=== PATIENT | female | born 1945 | race Caucasian/White ===

== ENCOUNTER 2019-08-08 16:27 | Observation (INO) ==
--- NOTE | 2019-08-08 17:19 | PROVIDER DOCUMENTATION ---
HPI-General Adult - General Chief Complaint: Fall Stated Complaint: FALL Time Seen by Provider: 08/08/19 16:29 Source: patient Allergies/Adverse Reactions: Patient Allergies Allergy/AdvReac Type Severity Reaction Status Date / Time Penicillins Allergy Unknown Verified 08/08/19 19:15 Home Medications: Home Medication List Medication Instructions Recorded Confirmed Last Taken Type Atenolol [Tenormin] 25 mg PO BID 08/08/19 08/08/19 08/08/19 History Naproxen Sodium [Aleve] 1 cap PO PRN PRN 08/08/19 08/08/19 Unknown History - History of Present Illness -Gen Adult Nature of Presenting Problems: patient reported she she fell and injured her shoulder, denied head injury of loss of consciousness. obvious hematoma of the left arm with significant deformity. Location of Pain/Injury: reports: upper extremity Pain Radiation: reports: shoulder(s) Quality of Pain: reports: sharp, stabbing, tightness Severity: reports: moderate Onset/Duration: reports: abrupt, this morning Timing: reports: still present Context/Activities at Onset: reports: recent trauma history Modifying Factors: improves with: movement, palpation Associated Symptoms: reports: cough, fever/chills. denies: shortness of breath Similar Symptoms Previously?: No Recently seen or treated by another doctor?: No Review of Systems - Adult - REVIEW OF SYSTEMS - ADULT Constitutional: denies: fever, fatique Eyes: reports: no symptoms reported Ears, Nose, Mouth & Throat: reports: no symptoms reported Cardiovascular: reports: no symptoms reported Respiratory: reports: chronic cough, cough, shortness of breath Gastrointestinal: reports: no symptoms reported Genitourinary: reports: no symptoms reported Musculoskeletal: reports: joint pain, other (shoulder pain) Integumentary: reports: other (big hematoma) Psychiatric: reports: no symptoms reported Endocrine: reports: no symptoms reported Hematologic/Lymphatic: reports: no symptoms reported Allergic/Immunologic: reports: no symptoms reported Past History - Adult - PAST MEDICAL HISTORY-ADULT Review of Records: reports: Nursing Assessment Review Physical Exam-General - PHYSICAL EXAM-ADULT Initial Vital Signs Reviewed: Yes - CONSTITUTIONAL General Appearance: alert, no apparent distress - EYES Eyes: PERRL/EOMI - HEAD, EARS, NOSE, MOUTH & THROAT HENMT: normocephalic/atraumatic - NECK Neck: normal inspection. negative: C-spine tenderness - RESPIRATORY Respiratory: rhonchi, other (distant breath sounds). negative: wheezing - CARDIOVASCULAR Cardiovascular: normal peripheral pulses, regular rate, rhythm, no edema - GASTROINTESTINAL (ABDOMEN) Abdominal Exam: non tender, soft - MUSCULOSKELETAL Back Exam: no CVA tenderness, no vertebral tenderness, swelling, other (shoulder deformity, hematoma, tenderness) Extremity: no pedal edema, no calf tenderness - SKIN Integumentary: swelling, tenderness, other (hematoma) - NEUROLOGIC Neurologic: grossly normal, no motor/sensory deficits - PSYCHIATRIC Psych/Mental Status: normal mood/affect Progress - PLAN OF CARE/RESULTS Progress/Plan/Lab Results: Vital Signs - 8 hr 08/08/19 16:36 08/08/19 17:07 Temperature 99.9 F H 98.0 F Pulse Rate 90 Respiratory Rate 20 Blood Pressure 171/107 O2 Sat by Pulse Oximetry 97 Orders Category Date Time Status CHEST-2 VIEWS [RAD] Stat Exams 08/08/19 17:00 Ordered CLAVICLE-LEFT [RAD] Stat Exams 08/08/19 16:48 Ordered SHOULDER-LEFT [RAD] Stat Exams 08/08/19 16:59 Ordered BLOOD CULTURE [BLDCUL] Stat Lab 08/08/19 17:05 Uncollected CBC WITH DIFF [HEME] Stat Lab 08/08/19 17:05 Ordered COMPREHENSIVE METABOLIC PANEL [CHEM] Stat Lab 08/08/19 17:05 Uncollected SPUTUM CULTURE WITH GRAM STAIN [RM] Urgent Lab 08/08/19 17:06 Uncollected Pulse Oximetry Stat Oth 08/08/19 17:05 Active Result Diagrams: 08/08/19 17:40 08/08/19 17:40 - REASSESSMENT N Time Reassessed: 19:32 Status: unchanged (WILL COVID TEST ON WAY TO ADMIT AT [facility], NOT ATELECTASIS LLL AND TEMP 99.9, POSSIBLE ROUTINE CAP OR COVID: WILL TEST FOR COVID, ADMISSION DISCUSSED W/ DR UMANZOR-Keyla) - CONSULTS/PCP/HOSPITALIST Notification #1 *Consult/PCP/Hospitalist*: Dr Reardon Time Discussed: 17:50 Consult Disposition: other (stated that patient can be seen in his office) #2 Consult: Nicholas Time Discussed: 18:09 Consult Disposition: Will see in ED, Admit #3 Consult: ERNA Time Discussed: 19:26 (WRISTE ORDERS FOR [facility], BRIGIDO LLOYD, MS 2 Q 2) Departure - Departure Date of Disposition Decision: 08/08/19 Time of Disposition Decision: 19:27 DIAGNOSIS: Atelectasis of left lung Fracture of humerus, proximal, left, closed Qualifiers: Encounter type: initial encounter Fracture morphology: other fracture Fracture alignment: displaced Qualified Code(s): S42.292A - Other displaced fracture of upper end of left humerus, initial encounter for closed fracture Syncope Qualifiers: Syncope type: unspecified Qualified Code(s): R55 - Syncope and collapse Disposition: ADMITTED INPATIENT 09 Certified Medical Emergency: Emergent Condition: Stable - Critical Care Note This patient required my direct & personal management of CC.: No Attestation - Physician/ SOCRATES Attestation The physician spent face to face time with patient:: Yes Advanced Practice Provider documentation review:: Supervising physician onsite and consulted in the evaluation and care of this patient. The physician did have a face to face encounter with the patient.
--- NOTE | 2019-08-08 17:45 | Diag Imaging Result Doc PS360 ---
EXAM: CLAVICLE-LEFT 08/08/2019 HISTORY: fall TECHNIQUE: Left clavicle two views COMMENT: There is a comminuted fracture of the humeral head. The clavicle appears to be intact. There is degenerative change in the acromioclavicular joint. IMPRESSION: Fracture of the proximal humerus. Electronically signed by Malik Barrientos 08/08/2019 5:43 PM
[2019-08-08] MEDS ORDERED: ZOFRAN IV ONE (17:46)
[2019-08-08] MEDS ORDERED: MORPHINE IV ONE ×2 (17:46→19:21)
--- NOTE | 2019-08-08 17:46 | Diag Imaging Result Doc PS360 ---
EXAM: SHOULDER-LEFT 08/08/2019 HISTORY: shoulder pain TECHNIQUE: Left shoulder three views COMMENT: There is a comminuted fracture of the humeral head and neck. This includes fragments from the greater tuberosity. IMPRESSION: Fractured proximal humerus. Electronically signed by Malik Barrientos 08/08/2019 5:43 PM
--- NOTE | 2019-08-08 17:47 | Diag Imaging Result Doc PS360 ---
EXAM: CHEST-2 VIEWS 08/08/2019 HISTORY: cough TECHNIQUE: PA and lateral chest COMMENT: There is atelectasis or fibrosis in the medial left lower lobe. There are nipple shadows. The heart size is at the upper limits of normal. There is apparent COPD. No previous studies are present for comparison. IMPRESSION: COPD. Questionable atelectasis left lower lobe. Electronically signed by Malik Barrientos 08/08/2019 5:45 PM
[2019-08-08 18:04] LABS: BASO# 0.02 X1000 (0.0-0.2); BASO% 0.3 % (0.0-0.8); EOS# 0.01 X1000 (0.0-0.7); EOS% 0.1 % (0.0-10.0); HEMATOCRIT 46.8 % (37.0-47.0); IMM GRAN# 0.01 X1000 (0.0-0.04); IMM GRAN% 0.1 % (0.0-0.5); LYMPH# 0.57 X1000 (1.2-3.4); LYMPH% 7.5 % (20.5-51.1); MCH 31.8 PG (27-31); MCHC 32.1 g/dL (33-37); MCV 99.2 FL (81-99); MONO# 0.22 X1000 (0.11-0.59); MONO% 2.9 % (1.7-9.3); MPV 10.9 FL (7.4-10.4); NEUT# 6.72 X1000 (1.4-6.5); NEUT% 89.1 % (42.2-75.2); PLT 110 X1000 (130-400); RBC 4.72 XMIL (4.2-5.4); WBC 7.55 X1000 (4.8-10.8)
[2019-08-08 18:11] LABS: INR 0.97; PROTIME 13.4 Seconds (11.0-16.0)
[2019-08-08 18:12] LABS: PTT 32.4 Seconds (22.3-41.8)
[2019-08-08 18:19] LABS: ALBUMIN 4.7 g/dL (3.5-5.0); CALCIUM 9.7 mg/dL (8.8-10.2); POTASSIUM 4.3 mmol/L (3.5-5.1); TOTAL BILIRUBIN 0.6 mg/dL (0.20-1.00); TOTAL PROTEIN 8.4 g/dL (6.3-8.3)
[2019-08-08 18:25] LABS: BANDS 1 % (0-1); LYMPHS 6 % (21-51); MONO 1 % (1-9); SEGS 92 % (42-75)
[2019-08-08 18:26] LABS: HYPOCHROM 1+
--- NOTE | 2019-08-08 18:36 | HISTORY AND PHYSICAL ---
CHIEF COMPLAINT: Fall. HISTORY OF PRESENT ILLNESS: The patient is a 73-year-old female who presented to the hospital after having fallen at home. Noted that she was walking, does not think she tripped, but regardless, she fell and landed on her shoulder. She has had intense pain in her left shoulder since then and has had increased swelling around her shoulder. Still has good sensation distally. She denied any head injury, but is unsure if she hit her head or not. REVIEW OF SYSTEMS: Positive cough, congestion, shortness of breath. She has chronic COPD. Denies any chest pains. Denies fevers or chills. Denies blurred vision, change in vision. Denies any focalized numbness or weakness. Denies dysuria, frequency, constipation, melena, hematochezia. Notes that she has intense stabbing pain in her left shoulder area, moderate to severe, hurts with any movement. Notes that she has also had low-grade chills. She has had increased cough for the past couple weeks. PAST MEDICAL HISTORY: COPD. ALLERGIES: No known drug allergies. MEDICATIONS: She is on albuterol at home. I do not have full accurate list. FAMILY HISTORY: Noncontributory. SOCIAL HISTORY: Patient has a longstanding history of smoking. Does not drink. PHYSICAL EXAMINATION: VITAL SIGNS: Reviewed. Temperature 99.9 degrees initially, currently 98, pulse 90, respiratory 20, BP 171/107, saturation 97% on room air. GENERAL: Patient is awake, pleasant, although she is in obvious pain. HEENT: Normocephalic. NECK: Supple. CARDIOVASCULAR: Regular rate. CHEST: Decreased breath sounds with rhonchi throughout. No crackles. No wheezing. ABDOMEN: Soft. EXTREMITIES: Moves right upper and bilateral lower extremities with no issues. Left upper extremity, she has intentionally decreased movement secondary to pain. Has swelling over her shoulder area. It is very tender to touch. LABS: Reviewed. ASSESSMENT: 1. Syncope. 2. Surgical neck fracture, left humerus. 3. Chronic obstructive pulmonary disease. 4. Low-grade fever at 99.9. 5. Left shoulder pain. PLAN: We are going to admit patient to the hospital for pain control. We will follow her breathing with oxygen and nebulized treatments. Will consult Ortho due to her surgical neck left humeral fracture. We will restart her home medications once available. cc: Morro Bartholomew MD
[2019-08-08] MEDS ORDERED: NICODERM PATCH TD ONE ×2 (19:21→22:57)
[2019-08-08] MEDS ORDERED: NS 1,000 ML IV ONE (22:57)
--- NOTE | 2019-08-09 04:11 | EKG Report ---
Test Performed on : 08/08/2019 7:00:58 PM Test Reason : fall, possible syncope Blood Pressure : / mmHG Vent. Rate : 082 BPM Atrial Rate : 082 BPM P-R Int : 118 ms QRS Dur : 078 ms QT Int : 508 ms P-R-T Axes : 039 -19 153 degrees QTc Int : 593 ms Normal sinus rhythm. Possible Left atrial enlargement Nonspecific ST and T wave abnormality Prolonged QT Abnormal ECG No previous ECGs available Unconfirmed Result
[2019-08-09] MEDS: MORPHINE IV PRN ×2 (04:55→15:57)
[2019-08-09] MEDS: VENTOLIN HFA INH SCH ×6 (05:27→23:00)
[2019-08-09 11:55] LABS: URINE SOURCE CLEAN CATCH
[2019-08-09 12:06] LABS: BILIRUBIN URINE NEGATIVE (NEGATIVE); BLOOD URINE TRACE (NEGATIVE); COLOR YELLOW; GLUCOSE URINE NEGATIVE (NEGATIVE); KETONE URINE NEGATIVE (NEGATIVE); LEUKOCYTES URINE NEGATIVE (NEGATIVE); NITRITE URINE NEGATIVE (NEGATIVE); PROTEIN URINE NEGATIVE (NEGATIVE); SP GRAVITY URINE 1.014; TURBIDITY URINE CLEAR (CLEAR); UROBILINOGEN URINE NORMAL (NORMAL)
[2019-08-09 12:08] LABS: UR EPITHELIAL CELLS <10 /HPF (<10); URINE BACTERIA NEGATIVE /HPF; URINE RBC <10 /HPF (<10); URINE WBC <10 /HPF (<10)
--- NOTE | 2019-08-09 13:22 | Diag Imaging Result Doc PS360 ---
EXAM: CT EXT UPPER LEFT W/O CON INDICATION: Left prox humerus fx TECHNIQUE: This exam was performed using automated exposure control, adjustment of mA or kV according to patient size, and/or use of iterative reconstruction technique. COMPARISON: None. FINDINGS: There is a comminuted fracture involving the surgical neck of the humerus with multiple moderately displaced fracture fragments. The humeral head is normally located. The AC joint appears to be intact. The clavicle and scapula are intact. The visualized left ribs are intact. There is soft tissue edema around the upper arm. IMPRESSION: Comminuted fracture involving the surgical neck of the humerus as described. Electronically signed by Larry Ross 08/09/2019 1:19 PM
--- NOTE | 2019-08-09 13:36 | ORTHOPAEDICS CONSULTATION ---
DATE: 08/09/2019 REQUESTING PHYSICIAN: Hospitalist REASON FOR CONSULTATION: Left proximal humerus fracture. PAST MEDICAL HISTORY: 1. COPD. 2. Hypertension. PAST SURGICAL HISTORY: 1. Hysterectomy. 2. Bilateral tubal ligation. MEDICATIONS: 1. Antihypertensive she takes at home was unsure of the name. 2. Albuterol. ALLERGIES: Patient reports allergy to penicillin, however, is unsure of the reaction. SOCIAL HISTORY: Patient lives alone in [place]. She reports a long history of smoking and states she currently smokes about 5 cigarettes a day. She denies any alcohol or drug use. She is left-hand dominant. FAMILY HISTORY: Noncontributory. REVIEW OF SYSTEMS: Ten point review of systems was complete. Patient reports mild achiness and a cough as well as feeling febrile yesterday. All other review of systems negative other than what is listed in history of present illness. CHIEF COMPLAINT: Left shoulder pain. HISTORY OF PRESENT ILLNESS: Ms Whitfield is a 73-year-old lady who sustained a same-level fall at home yesterday afternoon. Patient states she was walking and must have tripped causing her to fall onto her left shoulder. She did not hit her head or any loss of consciousness. She was able to get up and ambulate after the fall, however, reported significant pain and swelling in the left arm and was thus initially seen at [facility] ER. X-rays were taken in the ER demonstrating a three-part proximal humerus fracture. The initial plan was for patient to follow up with me in clinic as an outpatient. However, she was found to be mildly febrile and had significant pain, so she was thus admitted to the hospital for pain control. Given the fact that she had a cough and a fever, COVID-19 test was performed. She is currently in isolation. Awaiting results of that. The patient denies any other complaints. Again, she is left-hand dominant. PHYSICAL EXAMINATION: General: Ms. Whitfield is a 73-year-old female appears well nourished, well developed, no acute distress. She is awake, alert, oriented x3. She is very polite and cooperative during examination. Vital Signs: Temperature 98.6 degrees Fahrenheit, heart rate 88, respiratory rate 16, blood pressure 173/98, O2 saturations 99% on room air. HEENT: Normocephalic and atraumatic. Respiratory: Nonlabored breathing. Cardiovascular: Regular rate and rhythm. Extremities: Examination of left upper extremity shows skin intact. Patient has some significant swelling and ecchymosis along the left shoulder and arm down to the elbow. She is tender to palpation around her proximal humerus. She is nontender in her distal humerus, elbow, forearm, wrist, and hand. Motor is intact AIN, PIN and ulnar nerve distribution. Sensation intact to light touch to median, radial, ulnar, axillary nerves. Radial pulse is palpable and equal bilaterally. Her arm and forearm are soft and compressible. Examination of right upper extremity shows skin intact with no crepitus. She has full painless range of motion of the right upper extremity. Neurovascularly intact. Examination of bilateral lower extremity shows skin intact. She does have significant dry skin and varicose veins along the distal half of her leg down to her foot. No sign of infection in this area. Thigh and calf soft and compressible. Toes are up and downgoing. Motor is intact EHL, tibialis anterior, gastrocsoleus complex. Sensation intact to light touch L3-S1. LABS: White count 8, hemoglobin 15, hematocrit 47, platelets 110,000. INR is 1. Sodium 138, potassium 4.3, chloride 97, CO2 25, BUN 17, creatinine 1, glucose 126. Urinalysis negative leukocyte esterase, negative nitrite. IMAGING: AP and scapular Y-views of the left shoulder were obtained and reviewed demonstrating a three-part proximal humerus fracture with overall good alignment. She has some medial displacement of the calcar on the head. Greater tuberosity fragment appears to be in reasonable position. Axillary lateral view so hard to for sure wood barrel reconditioner whether or not the joint is reduced. CT scan of the left shoulder is pending. IMPRESSION: A 73-year-old female with left proximal humerus fracture as well as a cough and fever concerning for COVID-19. PLAN: 1. Reviewing her x-rays, her fracture appears to be in good alignment. We are getting a CT scan to evaluate for any intra-articular involvement and ensure the joint is reduced. Assuming her glenohumeral joint is reduced, we will plan on treating this non operatively. She is currently in a sling and shoulder immobilizer. We will plan on keeping her in this for about 4 weeks and then start range of motion once she begins getting some healing at the fracture site. Final recommendations pending the CT scan. 2. The patient is currently in isolation for COVID-19 precautions. She is afebrile today and does not seem to be coughing. She is stable medically. 3. Appreciate hospitalist recommendations. 4. Ice left upper extremity as needed for pain. 5. Disposition per primary team. Once the CT scan is done, I will put a note with final recommendations, however, she should be okay to be discharged home from orthopedic surgery standpoint as long as she is stable medically. She will follow up with me in clinic in 1 week for serial x-rays.
--- NOTE | 2019-08-09 17:25 | ORTHOPAEDICS PROGRESS NOTE ---
DATE: 08/09/2019 IMAGING: CT scan of the left shoulder was obtained, and reviewed demonstrating a comminuted 3 part proximal humerus fracture in overall good alignment. Glenohumeral joint is well reduced. She does have some displacement of the greater tuberosity, however, it is within acceptable limits. PLAN: 1. We will plan on treating this fracture conservatively. Patient is currently in a shoulder immobilizer and sling which I want her to remain in likely for about 3 to 4 weeks. She is to remain nonweightbearing on the left upper extremity. She can come out of the immobilizer to shower, but otherwise needs to stay in the immobilizer at all times. We will likely plan on treating her in the immobilizer for about 4 weeks, and then start a physical therapy to progress gentle [id number] exercises once there is radiographic evidence of healing. 2. The patient is currently under isolation, and underwent COVID-19 test. We will follow up with those results. 3. Appreciate hospitalist recommendations. 4. Disposition per primary team. From Orthopedic standpoint, patient is fine to be discharged home today. She will follow up with me in the clinic in 1 week with repeat x-rays.
[2019-08-09] MEDS ORDERED: ALEVE PO PRN (18:03)
[2019-08-09] MEDS: TENORMIN PO SCH ×2 (18:42→23:05)
--- NOTE | 2019-08-09 19:44 | DISCHARGE SUMMARY ---
ADMISSION DATE: 08/08/2019 DISCHARGE DATE: 08/09/2019 DISCHARGE DISPOSITION: Home. DISCHARGE CONDITION: Hemodynamically stable. She denies any chest pain, shortness of breath, or cough. Her left upper extremity is in a sling. She is advised to have a follow up with orthopedic doctor within 7 days for repeat x-ray of her shoulder and keep nonweightbearing status on the left upper extremity. She was also advised to keep social distance and remain quarantined until her COVID-19 result comes back. She was allowed to ask questions. All of her questions have been answered. DISCHARGE DIAGNOSES: 1. Surgical neck fracture of left humerus. 2. Low-grade fever 99.9 with history of chronic obstructive pulmonary disease, pending Coronavirus Disease 2019 results. OTHER DIAGNOSES: 1. History of chronic obstructive pulmonary disease. 2. History of essential hypertension. DISCHARGE MEDICATION: 1. Naproxen 220 mg as needed for pain. 2. Atenolol 25 mg b.i.d.. VITALS: At time of discharge temperature 98.4 degrees, pulse 99, respiratory rate 16, blood pressure 179/88 saturating 99% on room air. PHYSICAL EXAMINATION: Ms. Whitfield is not in acute distress. Oral cavity is moist. Chest: Air entry bilaterally equal with no wheeze. Cardiac: S1 and S2 are normal, no murmur or gallop. Abdomen: Soft, nontender. Extremity: No lower extremity edema. She has intact bilateral radial pulses. She has left shoulder pain. Neurological: She is alert and oriented x3. LABS: At the time of discharge WBC 7.5, hemoglobin 15, platelets 110,000. INR 0.9, BUN 17, creatinine 1. Blood cultures were collected which are in lab. However, I was not suspecting sepsis. IMAGING: During hospital admission clavicle x-ray on August 15 had fracture of proximal humerus. Shoulder x-ray had fracture of the left surgical neck humerus. A CT scan of the upper extremity was performed which suggested comminuted fracture involving the surgical neck of the humerus. CONSULTATION DURING HOSPITAL ADMISSION: Dr. Georgi Reardon. HOSPITAL COURSE SUMMARY: Ms. Whitfield is a 73-year-old lady with history of active tobacco abuse who came in after a mechanical fall at home and she started experiencing left shoulder pain. She decided to come to the hospital where she was found to have surgical neck humerus fracture. Orthopedic team was consulted who performed serial x-rays and CT scan. I had decided to treat her shoulder fracture nonsurgically. She was provided a sling and was advised to keep her left upper extremity immobilized unless taking a shower. She was advised to have nonweightbearing status and have outpatient followup in about 7 days for repeat x-ray. On presentation patient also complained of mild shortness of breath and cough and was found to have temperature of 99.9 degrees, so a COVID-19 test was sent out, though patient did not have any exposure history. At the time of discharge, she is hemodynamically stable. She was advised to remain quarantined until lab reports are back. She understood it. 25 minutes were spent discharging this patient. cc: Brayan Salinas MD
[2019-08-10] MEDS: MORPHINE IV PRN (00:29)
[2019-08-10] MEDS: VENTOLIN HFA INH SCH ×2 (05:03→07:56)
[2019-08-10 08:26] VITALS: BP 157/99
[2019-08-10] MEDS: TENORMIN PO SCH (09:03)
== END 2019-08-10 12:47 | disposition home health service (06) ==
LOC: 4N 16:27 → P.ED 16:27 → SUATTDRO 22:29
PROVIDERS: ATTEND Internal Medicine